=== PATIENT | male | born 1945 | race Caucasian/White ===

== ENCOUNTER 2020-04-27 07:06 | Day surgery (SDC) | payer OTHER ==
[~2020-04-27] VITALS: Ht 160 cm; Wt 106.2 kg
[~2020-04-27 07:06] MED LIST: AMLODIPINE BESY10 MG PO; ASPI81CH PO; ATOR40TA PO; Aspir 8181 MG PO; CHLO25B PO; CYCL10 PO; Depo-Testos200 MG/ML IM; FLUO10 PO; Flonase 0.05% N16 GM; HYDCHL50 PO; HYDCOR2.5B TOP; IBUP800 PO; K-Dur20 MEQ PO; LORA10 PO; LOSA50 PO; LOSARTAN POTAS100 M1 PO; METO50ER PO; MOMENI; NIAC250ER PO; NIAC500 PO; OMEP20ER PO; OXYACE5T PO; OXYC5 PO; RXERYTOPTH OP; SILD50TA PO; Viagra100 MG PO; Zinc 15 MG Loze15 MG PO
--- NOTE | 2020-04-27 07:45 | NUR ---
04/27/20 0745 Dionicio Granados CALL LIGHT WITHIN REACH
== END 2020-04-27 09:36 | disposition home or self-care (01) ==
LOC: ORSCSDS 07:06
PROVIDERS: Ophthalmology
PROC: 08RJ3JZ Replacement of Right Lens with Synthetic Substitute, Percutaneous Approach (ICD-10-PCS; principal; 2020-04-27 08:30)
DX: H25.11 Age-related nuclear cataract, right eye (principal); I10 Essential (primary) hypertension; G47.33 Obstructive sleep apnea (adult) (pediatric); Z87.891 Personal history of nicotine dependence; Z79.899 Other long term (current) drug therapy; J44.9 Chronic obstructive pulmonary disease, unspecified
CPT/HCPCS: J2001; J2250; J3010; J3301; J7040; V2632

== ENCOUNTER 2022-03-21 06:37 | Day surgery (SDC) | payer OTHER ==
[~2022-03-21] VITALS: Ht 185.4 cm; Wt 108.5 kg
--- NOTE | 2022-03-21 08:37 | NUR ---
03/21/22 0837 GINI ANDRADE PT DC STANDBY ASSIST TO GO HOME WITH
== END 2022-03-21 08:36 | disposition home or self-care (01) ==
LOC: ORSCSDS 06:37
PROVIDERS: Ophthalmology
PROC: 08RK3JZ Replacement of Left Lens with Synthetic Substitute, Percutaneous Approach (ICD-10-PCS; principal; 2022-03-21 08:00)
DX: H25.12 Age-related nuclear cataract, left eye (principal); H21.81 Floppy iris syndrome; G47.33 Obstructive sleep apnea (adult) (pediatric); E66.9 Obesity, unspecified; Z68.31 Body mass index [BMI] 31.0-31.9, adult; Z79.899 Other long term (current) drug therapy
CPT/HCPCS: J2001; J2250; J3010; J3301; J7030; J7040; V2632

== ENCOUNTER 2022-04-20 06:26 | Day surgery (SDC) | payer OTHER ==
[~2022-04-20] VITALS: Ht 185.4 cm; Wt 106.8 kg
[2022-04-20] MEDS ORDERED: ATEN25 PO (07:08)
--- NOTE | 2022-04-20 10:00 | NUR ---
DR. BRIDGES PREVIOUSLY AT BEDSIDE TO DISCUSS RESULTS OF PROCEDURE WITH PT. QUESTIONS ANSWERED BY PROVIDER, PT VERBALIZED UNDERSTANDING. PT RECLINING IN CHAIR, RIGHT WRIST WITH TR BAND IN PLACE, AIR IN. SITE APPEARS SOFT NON TENDER WITH NO BLEEDING, OOZING, OR PAIN PER PT. CALL LIGHT IN REACH. WILL CONTINUE TO MONITOR.
--- NOTE | 2022-04-20 10:19 | NUR ---
2 CC AIR REMOVED FROM RIGHT WRIST TR BAND, NO BLEEDING OR OOZING NOTED. PT REPOSITIONED FOR COMFORT. DENIES CP OR SOB. WILL CONTINUE TO MONITOR.
--- NOTE | 2022-04-20 10:42 | NUR ---
TR BAND FULLY DEFLATED ON RIGHT WRIST, ARM BOARD REMAINS ON FOR SUPPORT. SITE SOFT NON TENDER WITH NO BLEEDING, OOZING, OR PAIN. WILL CONTINUE TO MONITOR.
--- NOTE | 2022-04-20 11:14 | NUR ---
PT OUT OF RECLINER, GETS SELF DRESSED, NO NEEDED ASSISTANCE. STEADY GAIT TO RESTROOM. CALLED FOR TRANSPORTATION HOME. PT VERBALIZED UNDERSTANDING OF D/C INSTRUCTIONS, PAPERWORK PROVIDED IN FOLDER. TR BAND REMOVED FROM RIGHT WRIST, RED CLOTH DOT APPLIED. SITE SOFT NON TENDER WITH NO BLEEDING, OOZING, OR SWELLING. PT DENIES PAIN. ARM BOARD APPLIED SPLINT TO RIGHT WRIST. IV REMOVED FROM LAC WITH CATH INTACT, PRESSURE DRESSING APPLIED. PT DECLINES W/C OUT TO VEHICLE, AMBULATED WITH NURSE TO DISCHARGE AREA, NO ACUTE DISTRESS NOTED AT TIME OF DISPO. ENCOURAGED TO FOLLOW UP NEEDED WITH PROVIDER.
== END 2022-04-20 11:15 | disposition home or self-care (01) ==
LOC: MHTC 06:26
DX: I25.10 Atherosclerotic heart disease of native coronary artery without angina pectoris (principal); I77.819 Aortic ectasia, unspecified site; E78.5 Hyperlipidemia, unspecified; I10 Essential (primary) hypertension; I87.2 Venous insufficiency (chronic) (peripheral); E66.9 Obesity, unspecified; Z68.30 Body mass index [BMI] 30.0-30.9, adult; Z88.8 Allergy status to other drugs, medicaments and biological substances; Z95.2 Presence of prosthetic heart valve
CPT/HCPCS: 85347; 93454; 93571; 99152; 99153; C1769; C1887; C1894; J1644; J2250; J3010; J7030; J7040; Q9967

== ENCOUNTER 2022-10-15 06:12 | Day surgery (SDC) | payer OTHER ==
[~2022-10-15 06:12] MED LIST changes: +ATEN25 PO
--- NOTE | 2022-10-15 08:31 | NUR ---
10/15/22 0831 Janeen Ngo ROPIVACAINE 0.5% 30 MLS MIXED W/ EPI 0.15 (1MG/ML) PER ORDER TO MAKE ROPIVACAINE 0.5% 1:200,000 FOR INJECTION AT [facility] [place] BY DR MUNGUIA.
--- NOTE | 2022-10-15 10:42 | NUR ---
10/15/22 1042 ARIANNA DYER TITRAIT DOWN O2 - DOING WELL
--- NOTE | 2022-10-15 11:26 | NUR ---
10/15/22 1126 ARIANNA DYER ORDERED- GRAGHEY/Y VIEW RIGHT SHOULDER. NAUSEA GETTING A LITTLE BETTER, STILL HAS NAUSEA. AT BEDSIDE. PT ABLE TO URINATE- URINAL 275ML
== END 2022-10-15 13:05 | disposition home or self-care (01) ==
LOC: ORSCSDS 06:12
PROVIDERS: Orthopaedic Surgery
PROC: 0RRJ00Z Replacement of Right Shoulder Joint with Reverse Ball and Socket Synthetic Substitute, Open Approach (ICD-10-PCS; principal; 2022-10-15 07:30)
DX: M19.011 Primary osteoarthritis, right shoulder (principal); I25.10 Atherosclerotic heart disease of native coronary artery without angina pectoris; G47.33 Obstructive sleep apnea (adult) (pediatric); K21.9 Gastro-esophageal reflux disease without esophagitis; Z79.899 Other long term (current) drug therapy; Z79.82 Long term (current) use of aspirin
CPT/HCPCS: 73030; A9270; C1713; C1776; J0171; J0696; J1100; J2250; J2370; J2405; J2704; J2765; J2795; J3010; J3370; J7120

== ENCOUNTER 2023-06-26 11:32 | Emergency (ER) | payer OTHER | END 2023-06-26 15:06 | disposition home or self-care (01) | LOC: ER 11:32 | DX: R55 Syncope and collapse (principal); R00.1 Bradycardia, unspecified; I10 Essential (primary) hypertension; I25.2 Old myocardial infarction; Z88.8 Allergy status to other drugs, medicaments and biological substances; Z79.899 Other long term (current) drug therapy; Z79.82 Long term (current) use of aspirin ==

== ENCOUNTER 2024-03-15 13:09 | Emergency (ER) | payer OTHER ==
[~2024-03-15] VITALS: Ht 185.4 cm; Wt 98.4 kg
[2024-03-15 13:50] LABS: BASOPHILS ABSOLUTE AUTO 0.07 K/mm3 (0.00-0.23); BASOPHILS PERCENT AUTO 1 % (0-2); EOSINOPHILS ABSOLUTE AUTO 0.09 K/mm3 (0.00-0.68); EOSINOPHILS PERCENT AUTO 1 % (0-6); Hematocrit 47.3 % (37.0-53.0); IMMATURE GRAN ABSOLUTE AUTO 0.05 K/mm3 (0.00-0.10); IMMATURE GRAN PERCENT AUTO 0 % (0-1); LYMPHOCYTES ABSOLUTE AUTO 1.59 K/mm3 (0.84-5.20); LYMPHOCYTES PERCENT AUTO 13 % (21-46); MONOCYTES ABSOLUTE AUTO 0.91 K/mm3 (0.16-1.47); MONOCYTES PERCENT AUTO 8 % (4-13); Mean Corpuscular HGB 32.3 pg (26.0-34.0); Mean Corpuscular HGB Conc 33.8 g/dL (31.5-36.5); Mean Corpuscular Volume 95 fL (80-100); Mean Platelet Volume 10.3 fL (9.1-12.4); NEUTROPHILS ABSOLUTE AUTO 9.31 K/mm3 (1.96-9.15); NEUTROPHILS PERCENT AUTO 78 % (41-73); Platelet Count 231 K/mm3 (150-400); RDW Coefficient Variation 12.3 % (11.7-14.2); RDW Standard Deviation 43.3 fL (35.1-46.3); Red Blood Cell Count 4.96 M/mm3 (4.30-5.90); White Blood Cell Count 12.02 K/mm3 (4.00-11.30)
[2024-03-15 14:09] LABS: Albumin, Blood 3.8 g/dL (3.4-5.0); Bilirubin, Total 0.5 mg/dL (0.1-1.0); Bun/Creatinine Ratio 34.7 (12.0-20.0); Calcium, Blood 9.5 mg/dL (8.5-10.1); Creatinine, Blood 1.44 mg/dL (0.60-1.20); Globulin, Blood 3.9 g/dL (2.2-4.0); Potassium, Blood 4.2 mmol/L (3.5-5.5); Total Protein, Blood 7.7 g/dL (6.4-8.2)
[2024-03-15 14:45] VITALS: BP 131/64
== END 2024-03-15 15:15 | disposition home or self-care (01) ==
LOC: ER 13:09
PROVIDERS: Student in an Organized Health Care Education/Training Program
DX: I95.9 Hypotension, unspecified (principal); Z88.8 Allergy status to other drugs, medicaments and biological substances; Z79.899 Other long term (current) drug therapy; Z79.82 Long term (current) use of aspirin; I10 Essential (primary) hypertension
CPT/HCPCS: 80053; 85025; 93005; 93010; 99285-25

== ENCOUNTER 2025-05-19 08:14 | Day surgery (SDC) | payer OTHER ==
[~2025-05-19] VITALS: Ht 185.4 cm; Wt 100.0 kg
[2025-05-19] VITALS (9 sets, daily range): BP systolic 121–136; BP diastolic 52–62
[~2025-05-19 08:14] MED LIST changes: +MULVITA PO
[2025-05-19] MEDS ORDERED: CeFAZolin Sodium 2,000 MG in NS 100 ML IV SCH ×2 (08:40→18:15)
[2025-05-19] MEDS ORDERED: Chlorhexidine Mouth Care 15 ML UDC MT SCH (08:40)
[2025-05-19] MEDS ORDERED: Tranexamic Acid 100 ML IV SCH (08:40)
[2025-05-19] MEDS ORDERED: Ropivacaine 0.5% HCl/Pf 123.125 MG,EPINEPHrine HCL 0.25 MG,Ketorolac Tromethamine 15 MG... INFIL SCH (08:40)
[2025-05-19] MEDS ORDERED: CeFAZolin Sodium 2,000 MG VIAL ONE (09:18)
[2025-05-19] MEDS ORDERED: Magnesium Hydroxide Conc 10 ML UDC PO PRN (10:15)
--- NOTE | 2025-05-19 10:15 | NUR ---
History, Chart, Medications and Allergies reviewed before start of procedure.Lungs clear T/O to Auscultation. Pre-Op teaching done. Pt verbalizes understanding. Patient confirms NPO status and agrees with scheduled surgery.
--- NOTE | 2025-05-19 10:17 | NUR ---
AMBULATE TO BR VOIDED, AT BEDSIDE
[2025-05-19] MEDS ORDERED: Metoclopramide HCl 5MG / ML 2ML Vial IV PRN (10:20)
[2025-05-19] MEDS ORDERED: Ondansetron HCl 2 MG / ML 2ML Vial IV PRN ×2 (10:20→11:45)
[2025-05-19] MEDS ORDERED: HYDROmorphone HCl/Pf 1MG SYR IV PRN ×3 (10:20→11:45)
[2025-05-19] MEDS ORDERED: Testosterone Cypionate 200 MG / ML Vial IM SCH (10:30)
[2025-05-19] MEDS ORDERED: Midazolam HCl 1MG / ML 2ML Vial ONE (10:44)
[2025-05-19] MEDS ORDERED: FentaNYL Citrate 50 MCG/ML 2 ML Injection IV PRN ×2 (11:40→11:45)
[2025-05-19] MEDS ORDERED: Labetalol HCL 5 MG/ML 4ML Injection (Single Dose) IV PRN (11:40)
[2025-05-19] MEDS ORDERED: Ketorolac Tromethamine 15mg Vial IV SCH (12:00)
--- NOTE | 2025-05-19 14:16 | NUR ---
post-op PATIENT TO UNIT @1405, AOX4, SCDS, ICE AND TEDS IN PLACE. DENIES PAIN, DECREASED SENSATION TO BILAT LE. ABLE TO WIGGLE AND LIFT LEGS. L KNEE DRESSING IS C/D/I. VSS, BILAT EYES APPEAR RED, PATIENT REPORTS IRRITATION IN RIGHT EYE FOR 1 WEEK. LEFT EYE REDDNESS IS NEW TO PATIENT TODAY. CALL LIGHT IN REACH.
[2025-05-19] MEDS ORDERED: XARELTO10 M1 PO (16:57)
[2025-05-19] MEDS ORDERED: ACET500 PO (16:57)
[2025-05-19] MEDS ORDERED: SULTRIDS PO (16:58)
[2025-05-19] MEDS ORDERED: ONDA4ODT MM (16:59)
--- NOTE | 2025-05-19 17:40 | NUR ---
SHIFT SUMMARY PATIENT WORKED WITH PT, UP IN CHAIR AND UP IN ROOM, MEDICATED FOR PAIN TOLERATING WELL. TOLERATING PO INTAKE. ATTEMPTING TO VOID. DISCHARGE PAPERS PRINTED AND READY. AWAITING VOID TO SEND PATIENT HOME.
[2025-05-19] MEDS ORDERED: Fluticasone 0.05% Nasal Spray SCH (21:00)
[2025-05-20] MEDS ORDERED: Multivitamins 1 Tab PO SCH (09:00)
[2025-05-20] MEDS ORDERED: Trimethoprim/Sulfamethoxazole DS Tab PO SCH (09:00)
== END 2025-05-19 18:54 | disposition home or self-care (01) ==
LOC: ORSCMMR 08:14 → ORD 10:45 → SURS 14:00 → ORSCMMR 18:54
PROVIDERS: Orthopaedic Surgery
PROC: 0SRD0J9 Replacement of Left Knee Joint with Synthetic Substitute, Cemented, Open Approach (ICD-10-PCS; principal; 2025-05-19 10:45)
DX: M17.12 Unilateral primary osteoarthritis, left knee (principal); Z79.82 Long term (current) use of aspirin; Z96.651 Presence of right artificial knee joint; I10 Essential (primary) hypertension; K21.9 Gastro-esophageal reflux disease without esophagitis; Z87.891 Personal history of nicotine dependence; Z79.899 Other long term (current) drug therapy
CPT/HCPCS: 73560-LT; 97116; 97161; 97530; A9270; C1713; C1776; J0165; J0690; J0735; J1885; J2250; J2704; J2795; J3373; J7050; J7120

== ENCOUNTER → 2025-10-19 | Outpatient (CLI) | payer OTHER ==
[~2025-10-19] MED LIST changes: +ACET500 PO; +ONDA4ODT MM; +SULTRIDS PO; +XARELTO10 M1 PO
[2025-10-19 09:48] LABS: BODY FLUID RBC 0.148 M/mm3 (0-0); RBC Count, Synovial Fluid 148000 /mm3 (0-0)
[2025-10-19 10:15] LABS: Color, Synovial Fluid Red (None-P Yel)
[2025-10-19 10:16] LABS: Appearance, Synovial Fluid Cloudy (Clear)
[2025-10-19 10:24] LABS: Lymphs, Synovial Fluid 1 % (0-15); Monocytes/Macrophages, Synovia 3 % (0-65); Neutrophils, Synovial Fluid 96 % (0-24)
== END | disposition home or self-care (01) ==
LOC: LAB SHORT 08:20 → LAB 08:20
PROVIDERS: Orthopaedic Surgery
DX: M25.562 Pain in left knee (principal); Z96.60 Presence of unspecified orthopedic joint implant
CPT/HCPCS: 87070; 87075; 87205; 89051; 89060